=== PATIENT | female | born 1985 | race Asian ===

== ENCOUNTER 2017-01-11 20:04 | Emergency (ER) | payer OTHER ==
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
[2017-01-12 02:43] VITALS: BP 128/76
== END 2017-01-12 02:43 | disposition home or self-care (01) ==
LOC: ED 20:04
DX: S16.1XXA Strain of muscle, fascia and tendon at neck level, initial encounter (principal); M54.5 Low back pain; V49.59XA Passenger injured in collision with other motor vehicles in traffic accident, initial encounter; Y93.9 Activity, unspecified; Y92.9 Unspecified place or not applicable; Y99.9 Unspecified external cause status
CPT/HCPCS: 99282